=== PATIENT | female | born 1995 | race Caucasian/White ===

== ENCOUNTER 2020-04-24 13:10 | Outpatient (CLI) | payer BC, OTHER ==
[~2020-04-24 13:10] MED LIST: BENTYL 10MG CAP10 MG PO; REGLAN10 MG PO
== END 2020-04-24 13:48 | disposition home or self-care (01) ==
LOC: GENOP 13:10
DX: Z01.818 Encounter for other preprocedural examination (principal); O99.891 Other specified diseases and conditions complicating pregnancy; M25.551 Pain in right hip; M25.552 Pain in left hip

== ENCOUNTER 2020-04-30 23:38 | Outpatient (CLI) | payer BC, OTHER ==
[2020-05-01 00:41] LABS: HEMOGLOBIN 11.4 gm/dl (12.3-15.3); RED BLOOD COUNT 4.07 M/UL (4.00-5.10); WHITE BLOOD COUNT 11.9 K/UL (4.5-11.0)
[2020-05-01 01:01] LABS: BUN/CREATININE RATIO 11 (0-10)
== END 2020-05-01 02:39 | disposition home or self-care (01) ==
LOC: GENOP 23:38
PROVIDERS: Obstetrics & Gynecology
DX: O26.899 Other specified pregnancy related conditions, unspecified trimester (principal)
CPT/HCPCS: 36415; 80053; 81001; 82570; 83615; 84156; 84550; 85025; G0463

== ENCOUNTER 2020-05-20 23:56 | Inpatient (IN) | payer BC, OTHER ==
[~2020-05-20] VITALS: Ht 167.6 cm; Wt 88.9 kg
[2020-05-21 03:01] LABS: HEMOGLOBIN 11.6 gm/dl (12.3-15.3); RED BLOOD COUNT 4.14 M/UL (4.00-5.10); WHITE BLOOD COUNT 12.2 K/UL (4.5-11.0)
[2020-05-21] MEDS ORDERED: HYDROXYZINE HCL50 MG PO (04:41)
[2020-05-21] MEDS ORDERED: PRENATAL VITAM1 EAC3 PO (04:41)
[2020-05-21] MEDS ORDERED: HYDROCODON-ACE1 EAC4 PO (14:52)
[2020-05-21] MEDS ORDERED: IBUPROFEN600 MG PO (14:52)
[2020-05-21] MEDS ORDERED: DOCUSATE SODIU100 MG PO (14:52)
[2020-05-22 06:02] LABS: HEMOGLOBIN 9.9 gm/dl (12.3-15.3)
== END 2020-05-22 17:21 | disposition home or self-care (01) | DRG 807 ==
LOC: GENOP 23:56 → OB 05-21 01:43
PROVIDERS: Obstetrics & Gynecology; ADMIT Obstetrics & Gynecology
PROC: 10E0XZZ Delivery of Products of Conception, External Approach (ICD-10-PCS; principal; 2020-05-21)
PROC: 10H07YZ Insertion of Other Device into Products of Conception, Via Natural or Artificial Opening (ICD-10-PCS; 2020-05-21)
PROC: 0HQ9XZZ Repair Perineum Skin, External Approach (ICD-10-PCS; 2020-05-21)
DX: O62.8 Other abnormalities of forces of labor (principal); Z37.0 Single live birth; O99.284 Endocrine, nutritional and metabolic diseases complicating childbirth; Z3A.38 38 weeks gestation of pregnancy; E21.3 Hyperparathyroidism, unspecified; Z20.822 Contact with and (suspected) exposure to COVID-19
CPT/HCPCS: 36415; 51702; 81001; 82800; 83518; 85014; 85018; 85025; 87635; 90715; J0595; J2001; J2405; J2590; J2795; J7120